=== PATIENT | male | born 1955 | race Caucasian/White ===

== ENCOUNTER 2017-03-16 14:09 | Inpatient (IN) | payer OTHER ==
[2017-03-16 18:20] LABS: ADD MAN DIFF? NO
[2017-03-16 18:28] LABS: WHITE BLOOD COUNT 7.4 10^3/ul (4.8-10.8)
[2017-03-16 18:28] LABS: BASOPHILS % 0.5 % (0.0-2.0); EOSINOPHILS # 0.2 10^3/ul (0.0-0.5); EOSINOPHILS % 2.7 % (0.0-7.0); HEMATOCRIT 43.4 % (42.0-52.0); HEMOGLOBIN 14.5 g/dl (14.0-18.0); LYMPHOCYTES # 2.4 10^3/ul (0.8-2.9); LYMPHOCYTES % 32.9 % (15.0-51.0); MEAN CORPUSCULAR HEMOGLOBIN 30.7 pg (29.0-33.0); MEAN CORPUSCULAR HGB CONC 33.4 g/dl (32.0-37.0); MEAN CORPUSCULAR VOLUME 91.8 fl (82.0-101.0); MEAN PLATELET VOLUME 9.8 fl (7.4-10.4); MONOCYTE # 0.7 10^3/ul (0.3-0.9); MONOCYTES % 9.9 % (0.0-11.0); NEUTROPHILS % 53.7 % (39.0-77.0); PLATELET COUNT 209 10^3/UL (140-415); RED BLOOD COUNT 4.73 10^6/ul (4.70-6.10); RED CELL DISTRIBUTION WIDTH 13.5 % (11.5-14.5)
[2017-03-16] MEDS: SOD CHLORIDE 0.9% 1,000 ML IV (18:50)
[2017-03-16 18:57] LABS: ALANINE AMINOTRANSFERASE 36 IU/L (13-69); ALBUMIN/GLOBULIN RATIO 1.33; ALKALINE PHOSPHATASE 83 IU/L (42-121); ANION GAP 12 (8-16); ASPARTATE AMINO TRANSFERASE 24 IU/L (15-46); BLOOD UREA NITROGEN 19 mg/dl (7-20); CALCIUM 8.8 mg/dl (8.4-10.2); CARBON DIOXIDE 27 mmol/L (21-31); CHLORIDE 107 mmol/L (97-110); CREATININE 1.01 mg/dl (0.61-1.24); GLUCOSE 82 mg/dl (70-220); LIPASE 102 U/L (23-300); POTASSIUM 3.7 mmol/L (3.5-5.1); SODIUM 142 mmol/L (135-144)
[2017-03-16 19:10] LABS: TROPONIN-I < 0.012 ng/ml (0.00-0.12)
[2017-03-16] MEDS ORDERED: DOCUSATE SODIUM 100 MG CAP PO (20:00)
[2017-03-16] MEDS ORDERED: ONDANSETRON 4 MG INJ IV (20:00)
[2017-03-16] MEDS ORDERED: NACL 0.9% 3 ML SYG IV (20:00)
[2017-03-16] MEDS ORDERED: MAGNESIUM HYDROXIDE 30ML CUP PO (20:00)
[2017-03-16 22:40] LABS: CREATINE KINASE 103 IU/L (23-200)
[2017-03-16 22:53] LABS: CK INDEX 1.3
[2017-03-16 22:54] LABS: CK-MB 1.32 ng/ml (0.0-2.4); TROPONIN-I < 0.012 ng/ml (0.00-0.12)
[2017-03-17 03:04] LABS: CREATINE KINASE 87 IU/L (23-200)
[2017-03-17 03:06] LABS: CHOL/HDL RATIO 4.2 RATIO; HDL CHOLESTEROL 39 mg/dl (30-78); LDL CHOLESTEROL,CALCULATED 91 mg/dl; TRIGLYCERIDES 180 mg/dl (0-149)
[2017-03-17 03:06] LABS: CHOLESTEROL 166 mg/dl (100-200)
[2017-03-17 03:19] LABS: CK INDEX 1.4
[2017-03-17 03:21] LABS: CK-MB 1.26 ng/ml (0.0-2.4); TROPONIN-I < 0.012 ng/ml (0.00-0.12)
[2017-03-17] MEDS: PANTOPRAZOLE 40 MG INJ IV (05:28)
[2017-03-17 06:34] LABS: CHOLESTEROL 165 mg/dl (100-200)
[2017-03-17 06:34] LABS: CHOL/HDL RATIO 4.2 RATIO; HDL CHOLESTEROL 39 mg/dl (30-78); LDL CHOLESTEROL,CALCULATED 84 mg/dl; TRIGLYCERIDES 212 mg/dl (0-149)
[2017-03-17] MEDS: ASPIRIN (EC) 325 MG TAB PO (08:33)
[2017-03-17] MEDS: ENOXAPARIN 40 MG/0.4 ML SYG SC (08:35)
[2017-03-17] MEDS: SOD CHLORIDE 0.9% 1,000 ML IV (17:53)
[2017-03-17] MEDS: ACETAMINOPHEN 325 MG TAB PO (20:21)
[2017-03-18] MEDS: PANTOPRAZOLE 40 MG INJ IV (05:23)
[2017-03-18 06:34] LABS: TROPONIN-I < 0.012 ng/ml (0.00-0.12)
[2017-03-18] MEDS: SOD CHLORIDE 0.9% 1,000 ML IV ×2 (07:35)
[2017-03-18] MEDS: ASPIRIN (EC) 325 MG TAB PO (08:37)
[2017-03-18] MEDS: ENOXAPARIN 40 MG/0.4 ML SYG SC (08:39)
[2017-03-18] MEDS: REGADENOSON 0.4 MG/5 ML SYG (11:55)
[2017-03-18 16:00] LABS: ANION GAP 10 (8-16); BLOOD UREA NITROGEN 12 mg/dl (7-20); CALCIUM 8.8 mg/dl (8.4-10.2); CARBON DIOXIDE 29 mmol/L (21-31); CHLORIDE 107 mmol/L (97-110); CREATININE 1.08 mg/dl (0.61-1.24); GLUCOSE 117 mg/dl (70-220); POTASSIUM 3.8 mmol/L (3.5-5.1); SODIUM 142 mmol/L (135-144)
[2017-03-18] MEDS: ACETAMINOPHEN 325 MG TAB PO (16:37)
[2017-03-18 16:45] LABS: D-DIMER < 220.00 ng/ml (<460)
[2017-03-19] MEDS: SOD CHLORIDE 0.9% 1,000 ML IV (00:41)
[2017-03-19] MEDS: PANTOPRAZOLE 40 MG INJ IV (06:08)
[2017-03-19] MEDS: ASPIRIN (EC) 325 MG TAB PO (09:37)
[2017-03-19] MEDS: ENOXAPARIN 40 MG/0.4 ML SYG SC (09:39)
[2017-03-19] MEDS: GEMFIBROZIL 600 MG TAB PO (13:33)
[2017-03-20] MEDS ORDERED: PANTOPRAZOLE (EC) 40 MG TAB PO (06:00)
== END 2017-03-19 14:25 | disposition home or self-care (01) | DRG 312 ==
LOC: E/R 14:09 → MS3 18:49
DX: R55 Syncope and collapse (principal); I10 Essential (primary) hypertension; R07.9 Chest pain, unspecified; R00.1 Bradycardia, unspecified; E78.5 Hyperlipidemia, unspecified; R42 Dizziness and giddiness; Z87.891 Personal history of nicotine dependence
CPT/HCPCS: 71045; 71100; 78452; 80048; 80053; 80061; 82550; 82553; 83690; 84443; 84484; 85025; 85378; 93005; 93017; 93306; 93880; 99285-25